=== PATIENT | female | born 1940 | race Caucasian/White ===

== ENCOUNTER 2018-01-12 10:21 | Emergency (ER) | payer MEDICARE, OTHER ==
[2018-01-12 10:38] VITALS: BP 119/67
--- NOTE | 2018-01-12 11:08 | UC ---
Bite Injury/Animal HPI - HPI Summary HPI Summary: 77 yo female who presents for evaluation of a tick bite. She was hiking yesterday and noticed a tick in the evening. She was able to successfully remove it, not engorged. No other signs or symptoms. - History of Current Complaint Chief Complaint: BHAVANIkin Stated Complaint: tick bite Time Seen by Provider: 01/12/18 10:53 Pain Intensity: 1 - Allergies/Home Medications Allergies/Adverse Reactions: Allergies Allergy/AdvReac Type Severity Reaction Status Date / Time No Known Allergies Allergy Verified 01/12/18 10:38 Home Medications: Home Medications Atorvastatin* [Lipitor 10 MG*] 10 mg PO 1700 01/12/18 [History Confirmed ] Ezetimibe TAB* [Zetia TAB*] 10 mg PO DAILY 01/12/18 [History Confirmed 01/12/18] PMH/Surg Hx/FS Hx/Imm Hx Endocrine History: Dyslipidemia - Surgical History Surgical History: Yes Surgery Procedure, Year, and Place: RIGHT BREAST SURGERY 2007,[facility] - Family History Known Family History: Positive: None - Social History Alcohol Use: Daily Substance Use Type: None Smoking Status (MU): Never Smoked Tobacco Review of Systems Constitutional: Negative Skin: Negative Eyes: Negative ENT: Negative Respiratory: Negative Cardiovascular: Negative Gastrointestinal: Negative Genitourinary: Negative Motor: Negative Neurovascular: Negative Musculoskeletal: Negative Neurological: Negative Psychological: Negative Is Patient Immunocompromised?: No All Other Systems Reviewed And Are Negative: Yes Physical Exam Triage Information Reviewed: Yes Appearance: Well-Appearing Vital Signs: Initial Vital Signs Temp 97.9 F 01/12/18 10:34 Pulse 87 01/12/18 10:34 Resp 18 01/12/18 10:34 BP 119/67 01/12/18 10:34 Pulse Ox 98 01/12/18 10:34 Vital Signs Reviewed: Yes ENT Exam: Normal Neck exam: Normal Respiratory Exam: Normal Cardiovascular Exam: Normal Abdominal Exam: Normal Musculoskeletal Exam: Normal Neurological Exam: Normal Psychological Exam: Normal Skin: Positive: Other - L medial thigh with erythema c/w recent tick bite Bite Injury Course/Dx - Course Course Of Treatment: 77 yo female with c/o tick bite. Described that she is at low risk of Lyme based on length of time tick was attached. She would like doxycycline prophylaxis. - Differential Dx/Diagnosis Differential Diagnosis/HQI/PQRI: Cellulitis, Laceration Provider Diagnoses: Tick bite Discharge - Sign-Out/Discharge Documenting (check all that apply): Discharge/Admit/Transfer - Discharge Plan Condition: Stable Disposition: HOME Prescriptions: DOXYcycline CAP(*) [DOXYcycline 100MG CAP(*)] 200 mg PO ONCE #2 cap Patient Education Materials: Tick Bite (ED) Referrals: Audrey Ramirez MD [Primary Care Provider] - If Needed Additional Instructions: Instructions: 1. Please take antibiotic as directed 2. Follow up with your PCP if needed - Billing Disposition and Condition Condition: STABLE Disposition: HOME
== END 2018-01-12 11:07 | disposition home or self-care (01) ==
LOC: UCEAST 10:21
DX: S70.362A Insect bite (nonvenomous), left thigh, initial encounter (principal); W57.XXXA Bitten or stung by nonvenomous insect and other nonvenomous arthropods, initial encounter; Y93.01 Activity, walking, marching and hiking; Y92.9 Unspecified place or not applicable; E78.5 Hyperlipidemia, unspecified
CPT/HCPCS: 99212; G0463